=== PATIENT | female | born 1955 | race Two or more races ===

== ENCOUNTER 2018-08-19 11:43 | Emergency (ER) | payer OTHER ==
[~2018-08-19] VITALS: Ht 157.5 cm; Wt 51.3 kg
[2018-08-19] MEDS ORDERED: ZOCOR20 MG (11:59)
[2018-08-19] MEDS ORDERED: FORTAMET1000 MG (11:59)
[2018-08-19] MEDS ORDERED: LINZESS145 MCG (11:59)
[2018-08-19] MEDS ORDERED: GABAPENTIN100 MG (11:59)
[2018-08-19] MEDS ORDERED: SYNTHROID50 MCG (11:59)
[2018-08-19] MEDS ORDERED: GABAPENTIN800 MG (11:59)
[2018-08-19] MEDS ORDERED: FINASTERIDE5 MG (12:00)
[2018-08-19] MEDS ORDERED: VITAMIN D35000 UNIT (12:00)
[2018-08-19] MEDS ORDERED: BIOTIN5 MG (12:00)
[2018-08-19] MEDS ORDERED: LECITHIN1200 M1 (12:00)
[2018-08-19] MEDS ORDERED: FOLIC ACID1 MG (12:01)
[2018-08-19] MEDS ORDERED: B-100 COMPLEX100 MG (12:01)
== END 2018-08-19 16:04 | disposition home or self-care (01) ==
LOC: ER 11:43
DX: J06.9 Acute upper respiratory infection, unspecified (principal); R05 Cough; D64.9 Anemia, unspecified